=== PATIENT | male | born 1990 | race African-American/Black ===

== ENCOUNTER 2022-10-06 19:39 | Emergency (ER) | payer SELFPAY ==
[2022-10-06] MEDS ORDERED: Proparacaine 0.5% Opth 15 ML BOT ONE (20:34)
[2022-10-06] MEDS ORDERED: Fluorescein Opthalmic Strip ONE (20:34)
[2022-10-06] MEDS ORDERED: Gentamicin Ophth Soln 0.3% 5 ml Bottle EA EYE SCH (21:15)
== END 2022-10-06 21:31 | disposition home or self-care (01) ==
LOC: ERS 19:39
DX: S05.01XA Injury of conjunctiva and corneal abrasion without foreign body, right eye, initial encounter (principal); H10.9 Unspecified conjunctivitis
CPT/HCPCS: 65205